=== PATIENT | female | born 1960 | race African-American/Black ===

== ENCOUNTER 2016-09-29 20:03 | Inpatient (IN) | payer OTHER ==
[2016-09-29] MEDS ORDERED: TYLENOL PO STA (20:52)
[2016-09-29] MEDS: NACL 0.9% 500 ML 500 ML IV ONE ×2 (21:32→22:40)
[2016-09-29] MEDS ORDERED: NACL 0.9% 1000 ML 1,000 ML IV ONE (21:33)
[2016-09-29] MEDS ORDERED: ZOFRAN IV ONE (21:33)
--- NOTE | 2016-09-29 21:35 | Emergency Department Report ---
HPI - General Chief Complaint: Abdominal Pain Time Seen by Provider: 09/29/16 21:26 - HPI HPI: This is a 56-year-old female presents to the emergency department from home with complaint of nausea, vomiting, diarrhea, abdominal pain and some generalized weakness since late last night. She also has some chills but has not checked her temperature at home. The patient tried some Pepto-Bismol last night without any relief. The patient thinks that she may have gotten food poisoning as she had noodles and cooked squid last night, for the second day in a row. Her had the same food the previous day when it was first prepared but did not have any of the symptoms. She has a past medical history of lupus. Her primary care doctor is Dr. Avitia. No recent travel or sick contacts at home. She denies any chest pain, back pain, shortness of breath, dysuria, vaginal bleeding or discharge. ED Past Medical Hx - Past Medical History Previous Medical History?: Yes Additional medical history: lupus - Surgical History Past Surgical History?: Yes Additional Surgical History: kidney biopsy - Medications Home Medications: Home Medications Medication Instructions Recorded Confirmed Last Taken Type Hydroxychloroquine [Plaquenil] 200 mg PO DAILY 09/29/16 09/29/16 Unknown History Levothyroxine [Synthroid] 50 mcg PO QAM 09/29/16 09/29/16 Unknown History Lisinopril [Zestril TAB] 2.5 mg PO QDAY 09/29/16 09/29/16 Unknown History Potassium Chloride [K-Dur] 10 meq PO QDAY 09/29/16 09/29/16 Unknown History Prednisone [predniSONE] 1 mg PO BID 09/29/16 09/29/16 Unknown History ED Review of Systems ROS: Stated complaint: FOOD POISON Other details as noted in HPI Comment: All other systems reviewed and negative Constitutional: chills, fever, weakness Eyes: denies: eye pain, eye discharge, vision change ENT: denies: ear pain, throat pain Respiratory: denies: cough, shortness of breath, wheezing Cardiovascular: denies: chest pain, palpitations Gastrointestinal: abdominal pain, nausea, vomiting, diarrhea Genitourinary: denies: urgency, dysuria, discharge Musculoskeletal: denies: back pain, joint swelling, arthralgia Skin: denies: rash, lesions Neurological: denies: headache, numbness Physical Exam - Physical Exam Vital Signs: Vital Signs 09/29/16 09/29/16 09/29/16 20:46 21:02 21:18 Temperature 101.6 F H Pulse Rate 91 H Respiratory 18 18 18 Rate Blood Pressure 85/52 O2 Sat by Pulse 98 100 Oximetry Physical Exam: GENERAL: The patient is well-developed well-nourished. HEENT: Normocephalic. Atraumatic. Extraocular motions are intact. Patient has moist mucous membranes. Pupils equal reactive to light bilaterally. NECK: Supple. Trachea is midline. CHEST/LUNGS: Clear to auscultation. There is no respiratory distress noted. HEART/CARDIOVASCULAR: Regular. There is no tachycardia. There is no gallop rub or murmur. ABDOMEN: Abdomen is soft. There is some generalized tenderness to palpation of the abdomen. No guarding or rebound tenderness. Patient has normal bowel sounds. There is no abdominal distention. SKIN: Skin is hot but dry. NEURO: The patient is awake, alert, and oriented. The patient is cooperative. The patient has no focal neurologic deficits. The patient has normal speech. MUSCULOSKELETAL: There is no tenderness or deformity. There is no limitation range of motion. There is no evidence of acute injury. ED Course Vital Signs 09/29/16 09/29/16 09/29/16 20:46 21:02 21:18 Temperature 101.6 F H Pulse Rate 91 H Respiratory 18 18 18 Rate Blood Pressure 85/52 O2 Sat by Pulse 98 100 Oximetry ED Medical Decision Making - Lab Data Result diagrams: 09/29/16 21:40 09/29/16 21:35 - EKG Data -: EKG Interpreted by Me EKG shows normal: sinus rhythm, axis, intervals, QRS complexes, ST-T waves Rate: normal - EKG Data When compared to previous EKG there are: previous EKG unavailable Interpretation: normal EKG - Radiology Data Radiology results: report reviewed, image reviewed interpreted by me: Chest x-ray did not show any acute process. Heart is normal shape and size. No effusions. No pneumothorax. No signs of pneumonia seen. Abdominal x-ray does not show any acute process but shows some nonspecific non- obstructive bowel gas. CT of the abdomen and pelvis with IV contrast shows prominent wall thickening and fat stranding involving the right colon and transverse colon compatible with colitis likely inflammatory or infectious in etiology. Given the extent of while thickening, C. difficile colitis is raised. There is also mild colitis of the rectosigmoid colon distally. Trace reactive fluid and fat stranding in the pelvis. No abscess or free air. No bowel obstruction. The appendix is normal. - Medical Decision Making 56-year-old female presents with a 24-hour history of nausea, vomiting, diarrhea and also presents with a fever. She thought that at first it was due to food poisoning. Patient's labs thus far mostly unremarkable area there is a mild leukocytosis and the patient has some hyperkalemia. Normal belly labs including lipase, LFTs and bilirubin. Patient continues to have abdominal discomfort. Chest and abdominal x-rays did not show any acute process. However CT shows concern for significant colitis and with some concern for possible C. difficile colitis. With the patient's fever, leukocytosis and symptoms, the patient will be made contact precautions for C. difficile colitis will be admitted to the hospital. She was started on oral Flagyl and vancomycin. She was accepted for admission by the hospitalist, Dr. Bailey. - Differential Diagnosis C. difficile, diverticulitis, food poisoning, gastroenteritis Critical Care Time: No Critical care attestation.: If time is entered above; I have spent that time in minutes in the direct care of this critically ill patient, excluding procedure time. ED Disposition Clinical Impression: Colitis, Dehydration Hypotension Qualifiers: Hypotension type: unspecified hypotension type Qualified Code(s): I95.9 - Hypotension, unspecified Nausea and vomiting Qualifiers: Vomiting type: unspecified Vomiting Intractability: non-intractable Qualified Code(s): R11.2 - Nausea with vomiting, unspecified Diarrhea Qualifiers: Diarrhea type: presumed infectious Qualified Code(s): A09 - Infectious gastroenteritis and colitis, unspecified Disposition: OP ADMITTED IP TO THIS HOSP Is pt being admited?: Yes Condition: Stable Time of Disposition: 05:27
--- NOTE | 2016-09-29 21:50 | Admit Criteria Form ---
Admission Criteria Documentation: GASTROENTEROLOGY GRG Clinical Indications for Admission to Inpatient Care (Place 'X' for any and all applicable criteria): Hospital admission is needed for appropriate care of the patient because of ANY ONE of the following: [ ]I. Hemoperitoneum(7) [ ]II. Ascites requiring acute treatment indicated by ANY ONE of the following( 8)(9): [ ]a) Hemodynamic instability remaining after emergency or observation level care (as appropriate) [ ]b) Peritoneal signs present (eg, abdominal rigidity, rebound tenderness, absent bowel sounds) [ ]c) Tachypnea, Hypoxemia, or other respiratory symptoms remain after emergency or observation level care (as appropriate) [ ]d) Suspected infected ascites as indicated by ANY ONE of the following: [ ]i) Temperature greater than 100 degrees F (37.8 degrees C) [ ]ii) Abdominal pain or tenderness not relieved by paracentesis [ ]iii) Systemic signs of infection (eg, elevated WBC count, fever) [ ]iv) Ascitic fluid analysis consistent with infection ( eg, elevated WBC count): [ ]v) Vital sign abnormality [ ]III. Suspected acute intra-abdominal process indicated by ANY ONE of the following(1)(2)(3)(4)(5): [ ]a) Hemodynamic instability [ ]b) Peritoneal signs present (eg, abdominal rigidity, rebound tenderness, absent bowel sounds) [ ]c) Bowel obstruction suspected (eg, severe vomiting, abdominal distension) [ ]d) Suspected mesenteric ischemia or ischemic colitis(6) [ ]e) Other signs or symptoms of acute abdominal disease (eg, severe pain, free air): [ ]IV. Severe liver disease indicated by ANY ONE of the following(8)(9)(10)(11)( 12)(13)(14): [ ]a) Acute hepatitis (eg, transaminase level greater than 1000 IU/L) [ ]b) Acute elevation of prothrombin time to more than 50% above normal or INR greater than 1.5 [ ]c) Bilirubin greater than 20 mg/dL (342 micromoles/L) (15) [ ]d) New-onset or worsening hepatic encephalopathy [ ]e) Acute liver necrosis [ ]f) Vomiting or dehydration that is severe of persistent [ ]g) Hemodynamic instability due to liver disease [ ]h) Acute renal failure [ ]i) Hepatic abscess [ ]j) Dehydration that is severe or persistent [ ]k) Hepatic hydrothorax(21) [ ]l) Other indications of severe liver disease (eg, persistent fever , ingestion of hepatotoxin) [X ]V. Severe diarrhea indicated by ANY ONE of the following(17)(18)(19)(20)(21) (22)(23): [ ]a) High fever or other high-risk infection situation [ ]b) Intractable bloody diarrhea (eg, more than 6 bloody stools per day) [X ]c) Suspected Clostridium difficile-associated diarrhea(24) [ ]d) Change in mental status that persists after emergency or observation level care (as appropriate) [ ]e) Severe dehydration (eg, greater than 9% loss of body weight in children) [ ]f) Inability to maintain hydration [ ]g) Peritoneal signs present (eg, abdominal rigidity, rebound tenderness, absent bowel sounds) [ ]h) Abdominal ischemia suspected(6) [ ]i) Hemodynamic instability that persists after emergency or observation level care (as appropriate) [ ]j) Severe electrolyte abnormalities requiring inpatient care [ ]k) Acute renal failure [ ]. Suspected toxic megacolon(5)(6) [ ]VII.Severe dysphagia indicated by ANY ONE of the following(25)(26): [ ]a) Suspected esophageal perforation or fistula(27) [ ]b) Suspected cause that requires inpatient care (eg, caustic ingestion, severe esophagitis) (28) [ ]c) Severe dehydration (eg, greater than 9% loss of body weight in children) [ ]d) Inability to manage secretions or maintain hydration [ ]e) Hemodynamic instability that persists after emergency or observation level care (as appropriate) [ ]f) Severe electrolyte abnormalities requiring inpatient care [ ]g) Acute renal failure [ ]VIII.Vomiting and ANY ONE of the following (29)(30)(31)(32): [ ]a) High fever or other high-risk infection situation [ ]b) Change in mental status that persists after emergency or observation level care (as appropriate) [ ]c) Severe dehydration (e.g., greater than 9% loss of body weight in children) [ ]d) Peritoneal signs present (e.g., abdominal rigidity, rebound tenderness, absent bowel sounds) [ ]e) Hemodynamic instability that persists after emergency or observation level care (as appropriate) [ ]f) Severe electrolyte abnormalities requiring inpatient care [ ]g) Acute renal failure [ ]h) Bowel obstruction suspected (e.g., severe vomiting, abdominal distension) [ ]i) Vomiting that is severe or persistent after medical treatment [ ]IX. Significant dehydration indicated by ANY ONE of the following(23)(24)(25) [ ]a) Clinical findings of severe dehydration indicated by ANY ONE of the following: [ ]i) Acute loss of weight from baseline (5% of body weight in adults, 9% in pediatric patients) [ ]ii) Hemodynamic instability [ ]iii) Acute renal failure [ ]iv) Serum sodium greater than 150 mEq/L (mmol/L) [ ]b) Dehydration that is persistent indicated by ALL of the following: [ ]i) Oral rehydration therapy not tolerated or insufficient to adequately correct dehydration [ ]ii) Appropriate intravenous treatment (eg, fluids) does not readily correct dehydration hours of (ie, after 12 to 24 of treatment) [ ]X. Gastroparesis and ANY ONE of the following(37)(38)(39): [ ]a) Dehydration that is severe or persistent [ ]b) Severe electrolyte abnormalities requiring inpatient care [ ]c) Acute renal failure [ ]d) Vomiting that is severe or persistent [ ]XI. Complications of transplanted liver indicated by ANY ONE of the following (40)(41): [ ]a) Acute graft rejection requiring inpatient management (eg, intravenous immunosuppression)(42) [ ]b) Failure of transplanted liver as indicated by ANY ONE of the following: [ ]i) Acute hepatitis (eg, transaminase level greater than 1000 International Units per liter (IU/L)) [ ]ii) Acute elevation of prothrombin time to more than 50% above baseline or INR greater than 1.5 [ ]iii) Bilirubin greater than 20 mg/dL (342 micromoles/L) [ ]iv) New-onset or worsening hepatic encephalopathy [ ]v) Acute elevation of serum ammonia level (eg, greater than 210 mcg/dL (150 micromoles/L)) [ ]vi) Acute liver necrosis [ ]c) Infection requiring inpatient management (eg, Hemodynamic instability, need for intravenous antimicrobial treatment)(43)(44)(45)(46)(47)(48)(49)(50) [ ]d) Other complication of transplanted liver (eg, thrombosis, autoimmune hepatitis, variceal bleeding) requiring inpatient management(51)(52) [ ]XII Complications of transplanted pancreas indicated by ANY ONE of the following(53): [ ]a) Acute graft rejection requiring inpatient management (eg, intravenous immunosuppression)(42)(54) [ ]b) Failure of transplanted pancreas as indicated by ANY ONE of the following: [ ]i) Serum amylase greater than 3 times the upper limit of normal or baseline [ ]ii) Serum lipase greater than 3 times the upper limit of normal or baseline [ ]iii) Imaging findings consistent with pancreatic inflammation or necrosis [ ]c) Infection requiring inpatient management (eg, Hemodynamic instability, need for intravenous antimicrobial treatment)(43)(44)(45)(46)(47)(48)(49)(50) [ ]d) Other complication of transplanted liver (eg, thrombosis, autoimmune hepatitis, variceal bleeding) requiring inpatient management(51)(52) [ ]X. Gastroenterology condition and ALL of the following: [ ]a) Symptom or finding for which emergency and observation care have failed or are not considered appropriate (Also use General Criteria: Observation Care as appropriate) [ ]b) Presence of ANY ONE of the following: [ ]i) A General Admission Criteria [ ]ii) A Pediatric General Admission Criteria. The original [facility] [employer] content created by [facility] has been revised. The portions of the content which have been revised are identified through the use of italic text or in bold,and [facility] has neither reviewed nor approved the modified material. All other unmodified content is copyright [facility]. Please see references footnoted in the original [facility] edition 2016 Admission Criteria Met: Yes
[2016-09-29 22:09] LABS: Basophils % (Auto) 0.4 % (0.0-1.8); Hematocrit 35.1 % (30.3-42.9); Hemoglobin 11.6 gm/dl (10.1-14.3); Mean Corpuscular HGB Conc 33 % (30-34); Mean Corpuscular Hemoglobin 28 pg (28-32); Mean Corpuscular Volume 85 fl (79-97); Platelet Count 219 K/mm3 (140-440); Red Blood Count 4.11 M/mm3 (3.65-5.03); Red Cell Distribution Width 13.4 % (13.2-15.2); White Blood Count 11.9 K/mm3 (4.5-11.0)
[2016-09-29 22:15] LABS: INR 1.04 (0.87-1.13)
[2016-09-29 22:20] LABS: Alanine Aminotransferase 10 units/L (7-56); Albumin 3.7 g/dL (3.9-5); Albumin/Globulin Ratio 1.4 %; Alkaline Phosphatase 56 units/L (35-129); Anion Gap 17 mmol/L; BUN/Creatinine Ratio 18.75; Bilirubin,Total 0.6 mg/dL (0.1-1.2); Blood Urea Nitrogen 15 mg/dL (7-17); Calcium 8.6 mg/dL (8.4-10.2); Carbon Dioxide 22 mmol/L (22-30); Chloride 97.3 mmol/L (98-107); Glucose 110 mg/dL (65-100); Potassium 3.3 mmol/L (3.6-5.0); Sodium 133 mmol/L (137-145); Total Protein 6.3 g/dL (6.3-8.2)
[2016-09-29] MEDS ORDERED: K-DUR PO ONE (22:54)
[2016-09-29 23:14] LABS: Bilirubin,Urine NEG (Negative); Blood,Urine NEG (Negative); Ketones,Urine NEG (Negative); Leukocyte Esterase,Urine NEG (Negative); Mucus,Urine 2+ /HPF; Nitrite,Urine NEG (Negative); RBC,Urine < 1.0 /HPF (0.0-6.0); Urobilinogen,Urine < 2.0 mg/dL (<2.0)
[2016-09-30] MEDS ORDERED: NACL 0.9% 1000 ML 1,000 ML IV ONE
[2016-09-30] MEDS ORDERED: NACL ONE (01:24)
--- NOTE | 2016-09-30 02:20 | Cat Scan Report ---
FINAL REPORT EXAM: CT ABDOMEN PELVIS W CON HISTORY: Abd pain COMPARISON: None available. TECHNIQUE: Contiguous axial images were obtained. Additional sagittal and coronal reformatted images were obtained. Administration of IV contrast given per institution protocol. Images submitted for interpretation. 100 cc Omnipaque 240. FINDINGS: Prominent wall thickening of the cecum, ascending colon, transverse colon. Wall thickness measures up to 8 millimeters. Inflamed colon is relatively decompressed. No bowel obstruction. No free air pneumatosis. The appendix is normal in caliber. Mild wall thickening hyperemia of the distal rectosigmoid colon. Mild reactive fat stranding within the adjacent fat. Trace fluid in the pelvis. No abscess or free air. Mild linear scarring or atelectasis at the lung bases. No calcified gallstones or biliary dilatation. Homogeneous enhancement of the liver, spleen, pancreas and adrenal glands. No solid renal lesion. 1 centimeter superior right renal cyst. No hydronephrosis. Aorta and IVC normal in caliber. Urinary bladder, uterus, ovaries are grossly unremarkable. Bony pelvis and lumbar spine are grossly intact. IMPRESSION: Prominent wall thickening and fat stranding involving the right colon and transverse colon compatible with colitis likely inflammatory infectious in etiology. Given the extent of wall thickening, C difficile colitis is raised. There is also mild colitis of the rectosigmoid colon distally. Trace reactive fluid and fat stranding in the pelvis. No abscess or free air. No bowel obstruction. The appendix is normal in caliber.
[2016-09-30] MEDS ORDERED: FLAGYL PO ONE (02:37)
[2016-09-30] MEDS ORDERED: VANCOMYCIN PO SCH (03:00)
[2016-09-30] MEDS ORDERED: MILK OF MAGNESIA PO PRN (04:01)
--- NOTE | 2016-09-30 04:04 | History and Physical Report ---
History of Present Illness Date of examination: 09/30/16 History of present illness: 56-year-old woman history of hypertension, hypothyroidism, lupus comes emergency room for nausea vomiting, diarrhea. Wednesday she ate soup with vegetables and seafood, the next day he denied copious amounts of nausea vomiting and diarrhea with fever and chills and crampy abdominal pain diffuse. Diarrhea is nonbloody, she has multiple episodes a day Patient denies chest pain, palpitation, shortness of breath, cough, hematochezia, dysuria, frequency, focal weakness, dysarthria, polydipsia polyuria, hot or cold intolerance, easy bruisability, or rash or bleeding from mucosal membrane, rhinorrhea, epistaxis, earache, tinnitus, blurry vision, eye discharge, anxiety, depression. Other review of systems negative PAST SURGICAL HISTORY: None SOCIAL HISTORY: Denies alcohol, tobacco, drugs FAMILY HISTORY: Hypertension Medications and Allergies Allergies Allergy/AdvReac Type Severity Reaction Status Date / Time No Known Allergies Allergy Verified 09/29/16 20:51 Home Medications Medication Instructions Recorded Confirmed Last Taken Type Hydroxychloroquine [Plaquenil] 200 mg PO DAILY 09/29/16 09/29/16 Unknown History Levothyroxine [Synthroid] 50 mcg PO QAM 09/29/16 09/29/16 Unknown History Lisinopril [Zestril TAB] 2.5 mg PO QDAY 09/29/16 09/29/16 Unknown History Potassium Chloride [K-Dur] 10 meq PO QDAY 09/29/16 09/29/16 Unknown History Prednisone [predniSONE] 1 mg PO BID 09/29/16 09/29/16 Unknown History Active Meds: Active Medications Acetaminophen (Tylenol) 650 mg PO Q4H PRN PRN Reason: Pain MILD(1-3)/Fever >100.5/WILKES Enoxaparin Sodium (Lovenox) 40 mg SUB-Q QDAY JULIETTE Sodium Chloride (Nacl 0.9% 1000 Ml) 1,000 mls @ 75 mls/hr IV DIRECT JULIETTE Magnesium Hydroxide (Milk Of Magnesia) 30 ml PO Q4H PRN PRN Reason: Constipation Metronidazole (Flagyl) 500 mg PO Q8H JULIETTE Ondansetron HCl (Zofran) 4 mg IV Q4H PRN PRN Reason: N/V unrelieved by Douglas Vancomycin HCl (Vancomycin) 125 mg PO Q6H JULIETTE Exam - Physical Exam Narrative exam: Gen. appearance: Patient lying in bed, no apparent distress HEENT: Normocephalic, atraumatic, pupils equally round and reactive to light, extraocular movement intact, and no sclericterus,. No JVD or thyromegaly or nodule,neck supple, no carotid bruit ,mucous membranes moist, no exudate or erythema Heart: S1, S2, regular rate and rhythm Lungs: Clear to auscultation bilaterally, breathing comfortable Abdomen: Positive bowel sounds, nontender, nondistended, no organomegaly Extremity: No edema, cyanosis, clubbing Skin: No rash, nodules, warm, dry Neuro: Oriented 3, cranial nerves II-12 intact, speech is fluent, motor and sensory intact - Constitutional Vitals: Temp Pulse Resp BP Pulse Ox 98.3 F 61 14 91/54 98 09/29/16 23:35 09/29/16 23:35 09/29/16 23:35 09/30/16 00:00 09/29/16 23:35 Results - Labs CBC & Chem 7: 10/01/16 05:02 10/02/16 04:50 Labs: Abnormal lab results 09/29/16 09/29/16 09/29/16 Range/Units 21:35 21:35 21:40 WBC 11.9 H (4.5-11.0) K/mm3 Lymph % (Auto) 8.4 L (13.4-35.0) % Lymph # 1.0 L (1.2-5.4) K/mm3 Seg Neutrophils % 87.2 H (40.0-70.0) % Seg Neutrophils # 10.3 H (1.8-7.7) K/mm3 VBG pH 7.450 H (7.320-7.420) Sodium 133 L (137-145) mmol/L Potassium 3.3 L (3.6-5.0) mmol/L Chloride 97.3 L (98-107) mmol/L Glucose 110 H (65-100) mg/dL Lactic Acid (0.7-2.0) mmol/L Albumin 3.7 L (3.9-5) g/dL Urine WBC (Auto) (0.0-6.0) /HPF 09/29/16 09/29/16 Range/Units 22:50 23:49 WBC (4.5-11.0) K/mm3 Lymph % (Auto) (13.4-35.0) % Lymph # (1.2-5.4) K/mm3 Seg Neutrophils % (40.0-70.0) % Seg Neutrophils # (1.8-7.7) K/mm3 VBG pH (7.320-7.420) Sodium (137-145) mmol/L Potassium (3.6-5.0) mmol/L Chloride (98-107) mmol/L Glucose (65-100) mg/dL Lactic Acid 0.6 L (0.7-2.0) mmol/L Albumin (3.9-5) g/dL Urine WBC (Auto) 8.0 H (0.0-6.0) /HPF - Imaging and Cardiology Chest x-ray: image reviewed Abdominal x-ray: image reviewed CT scan - abdomen: report reviewed CT scan - pelvis: report reviewed Assessment and Plan Colitis, possible C. difficile Hypertension Hypothyroidism Lupus Admit to medicine Start IV fluid, antiemetics, Flagyl Physical contact precautions, replete potassium Continue appropriate outpatient medications, start DVT prophylaxis
[2016-09-30] MEDS: FLAGYL PO SCH ×3 (05:24→21:49)
[2016-09-30] MEDS: NACL 0.9% 1000 ML 1,000 ML IV SCH ×2 (05:25→17:40)
[2016-09-30] MEDS: TYLENOL PO PRN ×2 (06:00→11:50)
--- NOTE | 2016-09-30 08:57 | XRay Report ---
PORTABLE CHEST: An AP portable view of the chest demonstrates a normal cardiac contour considering the limits of this technique. The lungs are clear with no evidence of infiltrate, fluid or failure. IMPRESSION: Normal portable chest.
--- NOTE | 2016-09-30 09:00 | XRay Report ---
Supine and upright views of the colon: Several slightly distended gas filled loops of small bowel are noted in the left hemiabdomen. The bowel gas pattern is not otherwise remarkable. Minimal air-fluid layering identified in the left upper quadrant. No free air. No soft tissue mass. No abnormal soft tissue calcification. Impression: Nonspecific small bowel pattern in the left hemiabdomen. The possibility of inflammation is raised.
[2016-09-30] MEDS: LOVENOX SUB-Q SCH (11:51)
[2016-09-30] MEDS: PERCOCET 5/325 PO PRN ×2 (15:25→21:48)
[2016-09-30] MEDS: ZOFRAN IV PRN (19:05)
[2016-10-01] MEDS: NACL 0.9% 1000 ML 1,000 ML IV SCH ×2 (05:40→22:21)
[2016-10-01] MEDS: FLAGYL PO SCH ×3 (05:40→22:21)
[2016-10-01 06:04] LABS: Basophils % (Auto) 0.3 % (0.0-1.8); Eosinophils % (Auto) 0.1 % (0.0-4.3); Hematocrit 31.4 % (30.3-42.9); Hemoglobin 10.4 gm/dl (10.1-14.3); Mean Corpuscular HGB Conc 33 % (30-34); Mean Corpuscular Hemoglobin 29 pg (28-32); Mean Corpuscular Volume 87 fl (79-97); Platelet Count 160 K/mm3 (140-440); Red Blood Count 3.63 M/mm3 (3.65-5.03); Red Cell Distribution Width 13.9 % (13.2-15.2); White Blood Count 8.1 K/mm3 (4.5-11.0)
[2016-10-01 06:53] LABS: Anion Gap 18 mmol/L; Blood Urea Nitrogen 5 mg/dL (7-17); Calcium 7.9 mg/dL (8.4-10.2); Carbon Dioxide 17 mmol/L (22-30); Chloride 110.8 mmol/L (98-107); Glucose 83 mg/dL (65-100); Potassium 3.1 mmol/L (3.6-5.0); Sodium 143 mmol/L (137-145)
[2016-10-01] MEDS: PERCOCET 5/325 PO PRN ×2 (08:59→17:28)
[2016-10-01] MEDS: LOVENOX SUB-Q SCH (10:25)
[2016-10-01] MEDS: ZOFRAN IV PRN (13:19)
[2016-10-01] MEDS ORDERED: KCL 10MEQ/100ML 10 MEQ/100 ML BAG IV SCH (16:00)
[2016-10-01] MEDS ORDERED: K-DUR PO ONE (17:00)
--- NOTE | 2016-10-01 23:24 | Progress Note ---
Hospitalist Physical - Constitutional Vitals: Temp Pulse Resp BP Pulse Ox 98.1 F 57 L 18 122/71 99 10/01/16 16:00 10/01/16 16:00 10/01/16 16:00 10/01/16 16:00 10/01/16 21:48 Results - Labs CBC & Chem 7: 10/01/16 05:02 10/01/16 05:02 Labs: Laboratory Last Values WBC 8.1 K/mm3 (4.5-11.0) 10/01/16 05:02 RBC 3.63 M/mm3 (3.65-5.03) L 10/01/16 05:02 Hgb 10.4 gm/dl (10.1-14.3) 10/01/16 05:02 Hct 31.4 % (30.3-42.9) 10/01/16 05:02 MCV 87 fl (79-97) 10/01/16 05:02 MCH 29 pg (28-32) 10/01/16 05:02 MCHC 33 % (30-34) 10/01/16 05:02 RDW 13.9 % (13.2-15.2) 10/01/16 05:02 Plt Count 160 K/mm3 (140-440) 10/01/16 05:02 Lymph % (Auto) 15.9 % (13.4-35.0) 10/01/16 05:02 [place] % (Auto) 4.7 % (0.0-7.3) 10/01/16 05:02 Eos % (Auto) 0.1 % (0.0-4.3) 10/01/16 05:02 Baso % (Auto) 0.3 % (0.0-1.8) 10/01/16 05:02 Lymph # 1.3 K/mm3 (1.2-5.4) 10/01/16 05:02 [place] # 0.4 K/mm3 (0.0-0.8) 10/01/16 05:02 Eos # 0.0 K/mm3 (0.0-0.4) 10/01/16 05:02 Baso # 0.0 K/mm3 (0.0-0.1) 10/01/16 05:02 Seg Neutrophils % 79.0 % (40.0-70.0) H 10/01/16 05:02 Seg Neutrophils # 6.4 K/mm3 (1.8-7.7) 10/01/16 05:02 PT 13.5 Sec. (12.2-14.9) 09/29/16 21:35 INR 1.04 (0.87-1.13) 09/29/16 21:35 VBG pH 7.450 (7.320-7.420) H 09/29/16 21:35 Sodium 143 mmol/L (137-145) D 10/01/16 05:02 Potassium 3.1 mmol/L (3.6-5.0) L 10/01/16 05:02 Chloride 110.8 mmol/L (98-107) H 10/01/16 05:02 Carbon Dioxide 17 mmol/L (22-30) L 10/01/16 05:02 Anion Gap 18 mmol/L 10/01/16 05:02 BUN 5 mg/dL (7-17) L 10/01/16 05:02 Creatinine 0.5 mg/dL (0.7-1.2) L 10/01/16 05:02 Estimated GFR > 60 ml/min 10/01/16 05:02 BUN/Creatinine Ratio 10.00 % 10/01/16 05:02 Glucose 83 mg/dL (65-100) 10/01/16 05:02 Lactic Acid 0.6 mmol/L (0.7-2.0) L 09/29/16 23:49 Calcium 7.9 mg/dL (8.4-10.2) L 10/01/16 05:02 Total Bilirubin 0.6 mg/dL (0.1-1.2) 09/29/16 21:35 AST 17 units/L (5-40) 09/29/16 21:35 ALT 10 units/L (7-56) 09/29/16 21:35 Alkaline Phosphatase 56 units/L (35-129) 09/29/16 21:35 Total Protein 6.3 g/dL (6.3-8.2) 09/29/16 21:35 Albumin 3.7 g/dL (3.9-5) L 09/29/16 21:35 Albumin/Globulin Ratio 1.4 % 09/29/16 21:35 Lipase 27 units/L (13-60) 09/29/16 21:35 Urine Color Yellow (Yellow) 09/29/16 22:50 Urine Turbidity Clear (Clear) 09/29/16 22:50 Urine pH 5.0 (5.0-7.0) 09/29/16 22:50 Ur Specific [place] 1.018 (1.003-1.030) 09/29/16 22:50 Urine Protein 30 mg/dl mg/dL (Negative) 09/29/16 22:50 Urine Glucose (UA) Neg mg/dL (Negative) 09/29/16 22:50 Urine Ketones Neg mg/dL (Negative) 09/29/16 22:50 Urine Blood Neg (Negative) 09/29/16 22:50 Urine Nitrite Neg (Negative) 09/29/16 22:50 Urine Bilirubin Neg (Negative) 09/29/16 22:50 Urine Urobilinogen < 2.0 mg/dL (<2.0) 09/29/16 22:50 Ur Leukocyte Esterase Neg (Negative) 09/29/16 22:50 Urine WBC (Auto) 8.0 /HPF (0.0-6.0) H 09/29/16 22:50 Urine RBC (Auto) < 1.0 /HPF (0.0-6.0) 09/29/16 22:50 U Epithel Cells (Auto) 1.0 /HPF (0-13.0) 09/29/16 22:50 Hyaline Casts 1 /LPF 09/29/16 22:50 Urine Mucus 2+ /HPF 09/29/16 22:50
[2016-10-02 05:39] LABS: Anion Gap 18 mmol/L; Blood Urea Nitrogen 4 mg/dL (7-17); Calcium 7.7 mg/dL (8.4-10.2); Carbon Dioxide 16 mmol/L (22-30); Chloride 109.8 mmol/L (98-107); Glucose 69 mg/dL (65-100); Magnesium 1.8 mg/dL (1.7-2.3); Potassium 3.1 mmol/L (3.6-5.0); Sodium 141 mmol/L (137-145)
[2016-10-02] MEDS: FLAGYL PO SCH ×3 (06:31→21:21)
[2016-10-02] MEDS: ZOFRAN IV PRN ×3 (08:56→18:46)
[2016-10-02] MEDS: LOVENOX SUB-Q SCH (08:59)
[2016-10-02] MEDS: NACL 0.9% 1000 ML 1,000 ML IV SCH (09:53)
[2016-10-02] MEDS ORDERED: K-DUR PO ONE (12:00)
[2016-10-02] MEDS ORDERED: PREDNISONE 5 MG PO SCH (14:30)
[2016-10-02] MEDS ORDERED: NON-FORMULARY (Lisinopril [Zestril Tab] 2.5 MG) PO SCH (14:30)
[2016-10-02] MEDS: ZESTRIL PO SCH (17:04)
[2016-10-02] MEDS: PLAQUENIL PO SCH (17:05)
[2016-10-02] MEDS: KCL 10MEQ/100ML 10 MEQ/100 ML BAG IV SCH ×2 (17:05→21:41)
[2016-10-02] MEDS ORDERED: LOMOTIL PO ONE (18:31)
[2016-10-02] MEDS: LEVAQUIN PO SCH (18:45)
[2016-10-02] MEDS: DELTASONE PO SCH ×2 (18:45→21:22)
[2016-10-02] MEDS: PERCOCET 5/325 PO PRN (18:45)
--- NOTE | 2016-10-02 19:42 | Progress Note ---
History Interval history: having watery diarrhea, multiple episodes; nauseated, c/o generalized weakness, cramps Hospitalist Physical - Constitutional Vitals: Temp Pulse Resp BP Pulse Ox 97.9 F 60 18 97/64 96 10/02/16 14:30 10/02/16 14:30 10/02/16 14:30 10/02/16 17:04 10/02/16 08:01 Results - Labs CBC & Chem 7: 10/01/16 05:02 10/02/16 04:50 Labs: Laboratory Last Values WBC 8.1 K/mm3 (4.5-11.0) 10/01/16 05:02 RBC 3.63 M/mm3 (3.65-5.03) L 10/01/16 05:02 Hgb 10.4 gm/dl (10.1-14.3) 10/01/16 05:02 Hct 31.4 % (30.3-42.9) 10/01/16 05:02 MCV 87 fl (79-97) 10/01/16 05:02 MCH 29 pg (28-32) 10/01/16 05:02 MCHC 33 % (30-34) 10/01/16 05:02 RDW 13.9 % (13.2-15.2) 10/01/16 05:02 Plt Count 160 K/mm3 (140-440) 10/01/16 05:02 Lymph % (Auto) 15.9 % (13.4-35.0) 10/01/16 05:02 [place] % (Auto) 4.7 % (0.0-7.3) 10/01/16 05:02 Eos % (Auto) 0.1 % (0.0-4.3) 10/01/16 05:02 Baso % (Auto) 0.3 % (0.0-1.8) 10/01/16 05:02 Lymph # 1.3 K/mm3 (1.2-5.4) 10/01/16 05:02 Harvey # 0.4 K/mm3 (0.0-0.8) 10/01/16 05:02 Eos # 0.0 K/mm3 (0.0-0.4) 10/01/16 05:02 Baso # 0.0 K/mm3 (0.0-0.1) 10/01/16 05:02 Seg Neutrophils % 79.0 % (40.0-70.0) H 10/01/16 05:02 Seg Neutrophils # 6.4 K/mm3 (1.8-7.7) 10/01/16 05:02 PT 13.5 Sec. (12.2-14.9) 09/29/16 21:35 INR 1.04 (0.87-1.13) 09/29/16 21:35 VBG pH 7.450 (7.320-7.420) H 09/29/16 21:35 Sodium 141 mmol/L (137-145) 10/02/16 04:50 Potassium 3.1 mmol/L (3.6-5.0) L 10/02/16 04:50 Chloride 109.8 mmol/L (98-107) H 10/02/16 04:50 Carbon Dioxide 16 mmol/L (22-30) L 10/02/16 04:50 Anion Gap 18 mmol/L 10/02/16 04:50 BUN 4 mg/dL (7-17) L 10/02/16 04:50 Creatinine 0.4 mg/dL (0.7-1.2) L 10/02/16 04:50 Estimated GFR > 60 ml/min 10/02/16 04:50 BUN/Creatinine Ratio 10.00 % 10/02/16 04:50 Glucose 69 mg/dL (65-100) 10/02/16 04:50 Lactic Acid 0.6 mmol/L (0.7-2.0) L 09/29/16 23:49 Calcium 7.7 mg/dL (8.4-10.2) L 10/02/16 04:50 Magnesium 1.8 mg/dL (1.7-2.3) 10/02/16 04:50 Total Bilirubin 0.6 mg/dL (0.1-1.2) 09/29/16 21:35 AST 17 units/L (5-40) 09/29/16 21:35 ALT 10 units/L (7-56) 09/29/16 21:35 Alkaline Phosphatase 56 units/L (35-129) 09/29/16 21:35 Total Protein 6.3 g/dL (6.3-8.2) 09/29/16 21:35 Albumin 3.7 g/dL (3.9-5) L 09/29/16 21:35 Albumin/Globulin Ratio 1.4 % 09/29/16 21:35 Lipase 27 units/L (13-60) 09/29/16 21:35 Urine Color Yellow (Yellow) 09/29/16 22:50 Urine Turbidity Clear (Clear) 09/29/16 22:50 Urine pH 5.0 (5.0-7.0) 09/29/16 22:50 Ur Specific [place] 1.018 (1.003-1.030) 09/29/16 22:50 Urine Protein 30 mg/dl mg/dL (Negative) 09/29/16 22:50 Urine Glucose (UA) Neg mg/dL (Negative) 09/29/16 22:50 Urine Ketones Neg mg/dL (Negative) 09/29/16 22:50 Urine Blood Neg (Negative) 09/29/16 22:50 Urine Nitrite Neg (Negative) 09/29/16 22:50 Urine Bilirubin Neg (Negative) 09/29/16 22:50 Urine Urobilinogen < 2.0 mg/dL (<2.0) 09/29/16 22:50 Ur Leukocyte Esterase Neg (Negative) 09/29/16 22:50 Urine WBC (Auto) 8.0 /HPF (0.0-6.0) H 09/29/16 22:50 Urine RBC (Auto) < 1.0 /HPF (0.0-6.0) 09/29/16 22:50 U Epithel Cells (Auto) 1.0 /HPF (0-13.0) 09/29/16 22:50 Hyaline Casts 1 /LPF 09/29/16 22:50 Urine Mucus 2+ /HPF 09/29/16 22:50
[2016-10-02] MEDS: QUESTRAN PO SCH (23:10)
[2016-10-03] MEDS: KCL 10MEQ/100ML 10 MEQ/100 ML BAG IV SCH ×2 (02:58→08:04)
[2016-10-03] MEDS ORDERED: SYNTHROID PO SCH ×2 (06:00→10:00)
[2016-10-03] MEDS: FLAGYL PO SCH (06:31)
[2016-10-03 09:28] VITALS: BP 122/73
[2016-10-03] MEDS ORDERED: K-DUR PO SCH (10:00)
--- NOTE | 2016-10-03 10:29 | Gastroenterology Progress Note ---
Assessment and Plan - Patient Problems (1) Acute colitis Current Visit: Yes Status: Acute Plan to address problem: - Likely infectious given WBCs in stool specimen; C diff was negative. - Will d/c her flagyl, and recommend d/c levofloxacin in 3 days since stool culture was negative. - Advance diet and OK to d/c home when taking PO. - Colonoscopy as an outpatient if colitis persists, but doubt infectious or autoimmune given acute onset and rapid improvement with abx. Subjective Date of service: 10/03/16 Principal diagnosis: Colitis Interval history: The patient ate a regular breakfast today, and says she feels better; her abdominal pain is improved, and her BMs are no longer liquid. Today, she had 2 solid BMs after breakfast. She has no N/V/anorexia and no F/C. Objective - Constitutional Vitals: Temp Pulse Resp BP Pulse Ox 98.2 F 62 18 122/73 99 10/03/16 09:27 10/03/16 09:27 10/03/16 09:27 10/03/16 09:27 10/03/16 09:27 General appearance: no acute distress - EENT Eyes: PERRL, EOM intact - Respiratory Respiratory effort: normal Respiratory: bilateral: CTA - Cardiovascular Rhythm: regular Heart Sounds: Present: S1 & S2 - Gastrointestinal General gastrointestinal: Present: soft, non-tender, non-distended - Labs CBC & Chem 7: 10/01/16 05:02 10/02/16 04:50
--- NOTE | 2016-10-03 10:41 | Consultation ---
INDICATION: 1. Diarrhea. 2. Abdominal pain. HISTORY OF PRESENT ILLNESS: The patient is a 56-year-old female with history of hypothyroidism, hypertension, lupus, being seen for diarrhea. The patient reports that she had a soup dinner on Wednesday along with seafood and the next day she started having nausea, vomiting, and diarrhea along with fevers, chills, and cramping abdominal pain. The patient subsequently came to the Emergency Room on 09/30/2016 and subsequently was seen and admitted. The patient at that time had a CT scan consistent with colitis. Since that time, she was managed conservatively and now GI is consulted to aid in management. She reports her last colonoscopy was about 5 years ago was benign. She reports no bloody stools. She reports no history of GERD. The patient denies any diet or medication changes recently. Denies any weight loss. No specific complaints. PAST MEDICAL HISTORY: 1. Hypertension. 2. Hypothyroidism. 3. Lupus. PAST SURGICAL HISTORY: None. SOCIAL HISTORY: Denies alcohol, tobacco, or drug abuse. ALLERGIES: No known drug allergies. FAMILY HISTORY: Negative for colon cancer, IBD, or liver disease. REVIEW OF SYSTEMS: GENERAL: Reports mild weakness. HEENT: No visual complaints or tinnitus. PULMONARY: No shortness of breath. CARDIOVASCULAR: No chest pain. GASTROINTESTINAL: Reports diarrhea. All points of 13-point review of systems otherwise negative. PHYSICAL EXAMINATION: VITAL SIGNS: Temperature of 97.9, pulse 60, respirations 18, blood pressure 100/59. GENERAL: Fairly nourished, somewhat thin, female in no acute distress. HEENT: Pupils equal, round, reactive to light and accommodation. Extraocular muscles intact. PULMONARY: Clear to auscultation bilaterally. CARDIOVASCULAR: Regular ____rhythm. Normal S1, S2. ABDOMEN: Positive bowel sounds, soft. SKIN: No obvious rashes. LABORATORY DATA: Pertinent for white count of 8.1, hemoglobin and hematocrit of 10.1 and 31.4, platelet count of 160. Chem-7 within normal limits. LFTs within normal limits. CT scan consistent with colitis involving the right and transverse colon as well as mild colitis of the rectosigmoid. ASSESSMENT AND PLAN: A 56-year-old female who recently had seafoods and soup and the day after started having nausea, vomiting, and diarrhea with CT scan now showing signs of colitis. The patient's symptoms of nausea, vomiting, and abdominal pain are improved, but still having loose stools. She denies any other specific symptoms. Management as noted below. PLAN: 1. We will review CT scan. 2. Continue Levaquin and Flagyl as ordered. 3. Advance diet as tolerated. 4. Consider antidiarrheal agent based on progress. 5. We will follow with no plans for colonoscopy at this time. JOB# [id number] CAB/NTS
--- NOTE | 2016-10-03 10:43 | Discharge Summary ---
Providers - Providers Date of Admission: 09/30/16 04:01 Date of discharge: 10/03/16 Attending physician: INDRA DE LEON 10/02/16 14:26 Consult to Physician [CONS] Routine Consulting Provider: YARELIS SZYMANSKI Reason For Exam: diarrhea Place consult to:: Dr. Szymanski Notified:: office Phone number called:: Was contact made?: Yes If yes, spoke with:: mak Time called:: 15:41 Primary care physician: [employer] RELATIONS OR PERSONNEL NEGOTIATOR Hospitalization Condition: Stable Disposition: DISCHARGED TO HOME OR SELFCARE Time spent for discharge: 35 min Core Measure Documentation - Palliative Care Palliative Care/ Comfort Measures: Not Applicable - Core Measures Any of the following diagnoses?: none Exam - Constitutional Vitals: Temp Pulse Resp BP Pulse Ox 98.2 F 62 18 122/73 99 10/03/16 09:27 10/03/16 09:27 10/03/16 09:27 10/03/16 09:27 10/03/16 09:27 Plan Activity: advance as tolerated Diet: low cholesterol, low salt Follow up with: CAREN LUU MD [Primary Care Provider] - 7 Days DAMIEN HAWK MD [Staff Physician] - 14 Days (if symptoms persist) Prescriptions: Cholestyramine (with Sugar) [Questran] 4 gm PO BID #8 packet Levofloxacin [Levaquin TAB] 500 mg PO Q24HR #4 tablet
[2016-10-03] MEDS: DELTASONE PO SCH (11:23)
[2016-10-03] MEDS: ZESTRIL PO SCH (11:23)
[2016-10-03] MEDS: LOVENOX SUB-Q SCH (11:23)
[2016-10-03] MEDS: QUESTRAN PO SCH (11:24)
[2016-10-03] MEDS: PLAQUENIL PO SCH (11:24)
[2016-10-03] MEDS: LEVAQUIN PO SCH (11:25)
== END 2016-10-03 14:00 | disposition home or self-care (01) | DRG 392 ==
LOC: ED 20:03 → 3A 09-30 04:01
PROVIDERS: ADMIT Internal Medicine; ATTEND Internal Medicine
DX: A09 Infectious gastroenteritis and colitis, unspecified (principal); I10 Essential (primary) hypertension; M32.9 Systemic lupus erythematosus, unspecified; E87.5 Hyperkalemia; E86.0 Dehydration; I95.9 Hypotension, unspecified; E03.9 Hypothyroidism, unspecified; Z82.49 Family history of ischemic heart disease and other diseases of the circulatory system; Z79.899 Other long term (current) drug therapy
CPT/HCPCS: 36415; 71010; 74020; 74177; 80048; 80053; 81001; 82140; 82805; 83690; 83735; 85007; 85025; 85610; 87040; 87045; 87086; 87493; 93005; 93010; 96361; 96374; J1650; J2405; J3370; J3480; J7030; J7512; Q9966

== ENCOUNTER 2017-09-13 08:44 | Outpatient (CLI) | payer OTHER ==
--- NOTE | 2017-09-14 10:02 | Mammography Report ---
BILATERAL DIGITAL SCREENING MAMMOGRAM with CAD: 09/13/17 08:44:00 CLINICAL: Routine screening. COMPARISON:09/07/16 FINDINGS: The breasts are heterogeneously dense, which may obscure small masses. No mass, architectural distortion or suspicious calcifications. IMPRESSION: No mammographic evidence of malignancy. BI-RADS CATEGORY: 1 - - Negative RECOMMENDATION: Routine mammographic screening in one year. COMMENT: Patient follow-up letters are generated by our [employer] application.
== END 2017-09-13 08:45 | disposition home or self-care (01) ==
LOC: MAMMO 08:44
PROVIDERS: ATTEND Family Medicine
DX: Z12.31 Encounter for screening mammogram for malignant neoplasm of breast (principal)
CPT/HCPCS: 77067

== ENCOUNTER 2018-02-07 10:21 | Day surgery (SDC) | payer OTHER ==
[2018-02-07] MEDS ORDERED: NACL 0.9% 1000 ML 1,000 ML IV SCH (11:00)
[2018-02-07] MEDS ORDERED: DIPRIVAN 10 MG/ML IV ONE (11:19)
[2018-02-07] MEDS ORDERED: XYLOCAINE MPF 2% ONE (11:30)
[2018-02-07] MEDS ORDERED: WATER FOR IRRIG STERILE IR ONE (11:33)
[2018-02-07] MEDS ORDERED: WATER FOR IRRIG STERILE ONE (11:33)
--- NOTE | 2018-02-07 11:40 | Operative Report ---
Operative Report Operative Report: Date of procedure: 02/07/2018 Procedure: Colonoscopy . Attending physician: Gustavo Boles MD Sap Integration Architect: Gustavo Boles MD Indication: Patient is a 57-year-old female who presents for screening colonoscopy. This colonoscopy serves to evaluate patient so that treatment may be directed based on the findings. Consent: Informed consent was obtained after advising the patient and family regarding nature of this procedure, its indications, potential benefits as well as possible complications including but not limited to bleeding perforation and adverse reaction to medication, infection as well as other cardiopulmonary complications. An informed written and verbal consent was then obtained after due opportunity was provided for questions and answers. Monitoring: Patient was monitored continuously with pulse oximetry and electrocardiographic recordings as well as blood pressure recordings. Vital signs remained stable throughout this procedure with no untoward events. Preoperative assessment: Patient was assessed immediately prior to this procedure for capacity to tolerate monitored anesthesia care and moderate sedation as well as general anesthesia. Patient's ASA classification is 2, Mallampati class is 2, Hyomental distance is 3. Instrument: [employer] video colonoscope Medications: Propofol given intravenously in divided doses. For details please refer to anesthesia records. Description of procedure: Patient was placed in the left lateral decubitus position after achieving sedation, a digital rectal examination was performed following which the colonoscope was introduced into the anal verge and advanced to the cecum which was identified by the cecal valve, the appendiceal orifice, as well as by the cecal strap and direct transillumination. The colonoscope was subsequently withdrawn with careful inspection of all mucosal surfaces. Patient tolerated this procedure well and was subsequently taken to the recovery room. The following findings were noted. Findings: Patient had an isolated cecal diverticulum. The rest of the colon to the cecum was normal. On the retroflex view at the anal verge, patient had internal hemorrhoids. Impression: Cecal Diverticulum Internal hemorrhoids. Plan: High-fiber diet. Repeat colonoscopy in 10 years.
--- NOTE | 2018-02-07 11:41 | Discharge Summary ---
Short Stay Discharge Plan Activity: advance as tolerated Weight Bearing Status: Weight Bear as Tolerated Diet: regular Follow up with: PRIMARY CARE, [Primary Care Provider] - 7 Days
[2018-02-07 12:06] VITALS: BP 115/65
== END 2018-02-07 10:22 | disposition home or self-care (01) ==
LOC: GIO 10:21
PROVIDERS: ATTEND Internal Medicine Gastroenterology
DX: Z12.11 Encounter for screening for malignant neoplasm of colon (principal); K57.30 Diverticulosis of large intestine without perforation or abscess without bleeding; K64.8 Other hemorrhoids; I10 Essential (primary) hypertension; M19.90 Unspecified osteoarthritis, unspecified site; Z79.899 Other long term (current) drug therapy
CPT/HCPCS: 45378; J2704; J7030

== ENCOUNTER 2018-09-15 13:57 | Outpatient (CLI) | payer OTHER ==
--- NOTE | 2018-09-15 15:48 | Mammography Report ---
BILATERAL MAMMOGRAM: FINDINGS: The breast tissue is heterogeneously dense, which could obscure detection of small masses (approximately 50%-75% glandular). No mass, distortion, suspicious calcification, or skin change is seen. There is no significant change when compared to prior exams dating back to September 2016. CAD was utilized. IMPRESSION: Negative mammogram. There is no mammographic evidence of malignancy. RECOMMENDATION: Follow-up per ACS guidelines. BI-RADS CATEGORY: 1 = Negative ACR BI-RADS MAMMOGRAPHIC CODES: 0 = Needs additional imaging evaluation; 1 = Negative; 2 = Benign; 3 = Probably benign; 4 = Suspicious; 5 = Malignant; 6 = Known biopsy-proven malignancy COMMENT: 1. Dense breast tissue, i.e., adenosis, fibrocystic changes, etc., may obscure an underlying neoplasm. 2. Approximately 10% of cancers are not detected with mammography. 3. A negative mammography report should not delay biopsy if a clinically suspicious mass is present. COMMENT: Patient follow-up letters are generated in [employer].
== END 2018-09-15 13:58 | disposition home or self-care (01) ==
LOC: MAMMO 13:57
PROVIDERS: ATTEND Family Medicine
DX: Z12.31 Encounter for screening mammogram for malignant neoplasm of breast (principal); I10 Essential (primary) hypertension; M19.90 Unspecified osteoarthritis, unspecified site
CPT/HCPCS: 77067

== ENCOUNTER 2020-04-25 08:10 | Outpatient (CLI) | payer BC ==
--- NOTE | 2020-04-25 09:29 | Mammography Report ---
DIGITAL SCREENING MAMMOGRAM WITH CAD, 04/25/2020 INDICATION: Routine screening mammography. TECHNIQUE: Digital bilateral 2D mammography was obtained in the craniocaudal and mediolateral obliq ue projections. This examination was interpreted with the benefit of Computer-Aided Detection analysi s. COMPARISON: 09/15/2018. FINDINGS: Breast Density: The breasts are heterogeneously dense, which may obscure small masses. There is no evidence of dominant mass, suspicious calcifications or architectural distortion in eithe r breast. IMPRESSION: Follow up recommendation: Routine yearly BI-RADS Category 1: Negative. A "normal" or negative report should not discourage follow up or biopsy of a clinically significant f inding. A written summary of these findings will be mailed to the patient. The patient will be entered into a mammography reporting system which will generate a reminder letter for the patient's next appointmen t at the appropriate interval. The [employer] recommends yearly mammograms starting at age 40 and continuing as l gayatri as a woman is in good health. Breast MRI is recommended for women with an approximate 20-25% or greater lifetime risk of breast cancer, including women with a strong family history of breast or ova marley cancer or who have been treated for Hodgkin's disease. Signer Name: Pee Greene MD Signed: 04/25/2020 9:25 AM Workstation Name: [employer]
== END 2020-04-25 08:11 | disposition home or self-care (01) ==
LOC: MAMMO 08:10
PROVIDERS: ATTEND Student in an Organized Health Care Education/Training Program
DX: Z12.31 Encounter for screening mammogram for malignant neoplasm of breast (principal)
CPT/HCPCS: 77067

== ENCOUNTER 2021-11-03 07:56 | Outpatient (CLI) | payer BC ==
--- NOTE | 2021-11-04 12:07 | Mammography Report ---
DIGITAL SCREENING MAMMOGRAM WITH CAD, 11/03/2021 CLINICAL INFORMATION / INDICATION: Routine screening mammography. TECHNIQUE: Digital bilateral 2D mammography was obtained in the craniocaudal and mediolateral obliqu e projections. This examination was interpreted with the benefit of Computer-Aided Detection analysis . COMPARISON: 04/25/2020, 09/15/2018, 09/13/2017 FINDINGS: Breast Density: The breasts are heterogeneously dense, which may obscure small masses. No dominant mass, suspicious calcifications, or architectural distortion in either breast. There has been no significant interval change. IMPRESSION: No mammographic evidence of malignancy. Follow up recommendation: Routine yearly BI-RADS Category 1: NEGATIVE A "normal" or negative report should not discourage follow up or biopsy of a clinically significant f inding. A written summary of these findings will be mailed to the patient. The patient will be entered into a mammography reporting system which will generate a reminder letter for the patient's next appointmen t at the appropriate interval. The [employer] recommends yearly mammograms starting at age 40 and continuing as l gayatri as a woman is in good health. Breast MRI is recommended for women with an approximate 20-25% or greater lifetime risk of breast cancer, including women with a strong family history of breast or ova marley cancer or who have been treated for Hodgkin's disease. Signer Name: Shawna Mcdaniels MD Signed: 11/04/2021 12:01 PM Workstation Name: [id number]
== END 2021-11-03 07:57 | disposition home or self-care (01) ==
LOC: MAMMO 07:56
PROVIDERS: ATTEND Student in an Organized Health Care Education/Training Program
DX: Z12.31 Encounter for screening mammogram for malignant neoplasm of breast (principal); N64.89 Other specified disorders of breast
CPT/HCPCS: 77067